=== PATIENT | female | born 1950 | race Caucasian/White ===

== ENCOUNTER → 2016-08-04 | Outpatient (CLI) | payer BC ==
[~2016-08-04] MED LIST: BACL10TA PO; CEPH500C PO; GLC/500 PO; LINA1CAP PO; LISI-725 PO; LISI-787 PO; NRN/300 PO; OXYC-57 PO; PENT100C6 PO; PHEN-775 PO; POLY335019 PO
== END | disposition home or self-care (01) ==
LOC: C.LABSPEC 17:05
PROVIDERS: ATTEND Nurse Practitioner Family
DX: R10.2 Pelvic and perineal pain (principal)

== ENCOUNTER → 2016-08-07 | Outpatient (CLI) | payer BC ==
--- NOTE | 2016-08-07 09:05 | DIAGNOSTIC IMAGING REPORT ---
ULTRASOUND OF THE PELVIS CLINICAL HISTORY: Pelvic pain. COMPARISON STUDY: CT of the pelvis dated 09/27/2009. TECHNIQUE: Real-time, grayscale, and color flow sonography of the pelvis is performed both transabdominally and endovaginally. Images are reviewed in the transverse and longitudinal planes. FINDINGS: Uterus: The uterus is surgically absent Ovaries: The ovaries were not identified on the transabdominal or endovaginal images. Pelvis: There is no free fluid in the cul-de-sac. No concerning adnexal lesion is seen. IMPRESSION: 1. No sonographic abnormality is identified in the pelvis. 2. The uterus is surgically absent. The ovaries were not visualized and may also be surgically absent. Correlation with the surgical history will be required. Electronically signed by: Edinson Orellana M.D. 08/07/2016 9:03 AM Dictated Date/Time: 08/07/2016 9:01 AM
--- NOTE | 2016-08-07 09:39 | DIAGNOSTIC IMAGING REPORT ---
KUB CLINICAL HISTORY: Pelvic pain. FINDINGS: 2 AP supine abdominal radiographs are correlated with abdominal CT dated 09/27/2009. There is a nonobstructed abdominal bowel gas pattern noting moderate to severe colonic fecal retention. Numerous pelvic phleboliths are similar to previous. The skeletal structures are osteopenic. The lumbar spine and bony pelvis appear intact. The lung bases are clear as imaged. IMPRESSION: Moderate to severe constipation. Electronically signed by: Edinson Orellana M.D. 08/07/2016 9:37 AM Dictated Date/Time: 08/07/2016 9:35 AM
== END | disposition home or self-care (01) ==
LOC: C.ULTR 08:13
PROVIDERS: ATTEND Nurse Practitioner Family
DX: R10.2 Pelvic and perineal pain (principal)

== ENCOUNTER 2016-08-25 06:17 | Emergency (ER) | payer BC ==
[~2016-08-25] VITALS: Ht 157.5 cm; Wt 85.1 kg
[~2016-08-25 06:17] MED LIST changes: -BACL10TA PO; -CEPH500C PO; -GLC/500 PO; -LINA1CAP PO; -LISI-725 PO; -NRN/300 PO; -OXYC-57 PO; -PENT100C6 PO; -PHEN-775 PO; -POLY335019 PO
[2016-08-25 06:20] VITALS: TEMP 36.5; Ht 157.5 cm; Wt 85.1 kg
[2016-08-25] MEDS ORDERED: SODIUM CHLORIDE 0.9% 1000ML 1,000 ML IV STA (06:45)
[2016-08-25] MEDS ORDERED: ONDANSETRON INJ 2 MG/ML 2 ML VIAL IV STA (06:45)
[2016-08-25] MEDS ORDERED: KETOROLAC TROMETHAMINE 30 MG/ML VIAL IV STA (06:45)
[2016-08-25] MEDS ORDERED: LINA1CAP PO (06:54)
[2016-08-25] MEDS ORDERED: POLY335019 PO (06:54)
[2016-08-25] MEDS ORDERED: GLC/500 PO (06:54)
[2016-08-25] MEDS ORDERED: OPTIRAY 320 IV PRN (07:00)
--- NOTE | 2016-08-25 07:04 | DIAGNOSTIC IMAGING REPORT ---
CHEST ONE VIEW PORTABLE CLINICAL HISTORY: Pain, radiating to the abdomen. COMPARISON STUDY: No previous studies for comparison. FINDINGS: The cardiac and mediastinal contours are normal. There is no evidence of focal pulmonary consolidation. There is no evidence of failure. No pleural effusions are visualized.[ Slight prominence the basal markings are felt to be secondary to a suboptimal inspiration. No free air is visualized. IMPRESSION: No active disease in the chest. Electronically signed by: Carlos Ling M.D. 08/25/2016 7:03 AM Dictated Date/Time: 08/25/2016 7:02 AM
[2016-08-25 07:16] LABS: URINE APPEARANCE CLEAR (CLEAR); URINE BILIRUBIN NEG (NEG); URINE COLOR YELLOW; URINE EPITHELIAL CELL AUTO >30 /lpf (0-5); URINE NITRITE NEG (NEG); URINE SPECIFIC GRAVITY 1.018 (1.000-1.030); UROBILINOGEN NEG (NEG)
[2016-08-25 07:17] LABS: MANUAL MICROSCOPIC REQUIRED? NO; REVIEW REQ? NO; ZZUR CULT IF INDIC CLEAN CATCH NO
--- NOTE | 2016-08-25 07:20 | EMERGENCY ROOM VISIT NOTE ---
History Report prepared by Scribe: Lorenzo Greco Under the Supervision of: Dr. Serjio Chu D.O. First contact with patient: 06:44 Chief Complaint: ABDOMINAL PAIN Stated Complaint: PAIN IN STOMACH Nursing Triage Summary: Pt reports pain in the left lower quadrant. Pt gave urine sample and states, "the pain is subsiding. Maybe the pressure from having to go is gone and made it feel better." Pt reports pain has been going on for about a year. Pt had recent back surgery from herniated discs. Pt did see PCP and was diagnosed with severe constipation. Pt is taking medications for it. Pt reports a mesh for her bladder placed 10 years prior. History of Present Illness The patient is a 65 year old female who presents to the Emergency Room with complaints of intermittent left lower quadrant abdominal pain starting this morning. She has been having similar abdominal for the past year. The patient received an abdominal/pelvic x-ray on August 12. which showed severe constipation. She denies fevers, chills, chest pain, shortness of breath, nausea , vomiting, diarrhea, urinary symptoms, or any other complaints. Source of History: patient Onset: this morning Position: abdomen (LLQ) Timing: intermittent Associated Symptoms: No SOB, No chest pain, No chills, No diarrhea, No fevers, No nausea, No urinary symptoms, No vomiting Review of Systems See HPI for pertinent positives & negatives. A total of 10 systems reviewed and were otherwise negative. Past Medical & Surgical Medical Problems: (1) H/O urinary tract problem (2) Hypertension (3) Prediabetes Family History Cancer Heart disease Hypertension Lung disease Social History Smoking Status: Never Smoker Marital Status: Housing Status: lives with significant other Occupation Status: retired Current/Historical Medications Scheduled Linaclotide (Linzess), 145 MCG PO DAILY Lisinopril/Hctz (Zestoretic 20MG/12.5MG), 1 TAB PO DAILY Metformin Hcl (Glucophage), 500 MG PO BID Polyethylene Glycol 3350 (Miralax), 17 GM PO DAILY Allergies Coded Allergies: Aspirin (Verified Allergy, Mild, HIVES, 08/25/16) Physical Exam Vital Signs Date Time Temp Pulse Resp B/P Pulse Ox O2 Delivery O2 Flow Rate FiO2 08/25/16 09:43 87 18 124/65 100 Room Air 08/25/16 08:20 82 18 109/73 98 Room Air 08/25/16 06:20 36.5 95 20 148/94 98 Room Air Physical Exam CONSTITUTIONAL/VITAL SIGNS: Reviewed / noted above. GENERAL: Non-toxic in appearance. INTEGUMENTARY: Warm, dry, and [place]. HEAD: Normocephalic. EYES: without scleral icterus or trauma. ENT/OROPHARYNX: clear and moist. LYMPHADENOPATHY/NECK: Is supple without lymphadenopathy or meningismus. RESPIRATORY: Lungs clear and equal. CARDIOVASCULAR: Regular rate and rhythm. GI/ABDOMEN: Soft and nontender. No organomegaly or pulsatile mass. No rebound or guarding. Normal bowel sounds. EXTREMITIES: Warm and well perfused. BACK: No CVA tenderness. NEUROLOGICAL: Intact without focal deficits. PSYCHIATRIC: normal affect. MUSCULOSKELETAL: Normally developed with good muscle tone. Medical Decision & Procedures ER Provider Diagnostic Interpretation: X ray results and stated below per my interpretation and radiology interpretation. CHEST ONE VIEW PORTABLE CLINICAL HISTORY: Pain, radiating to the abdomen. COMPARISON STUDY: No previous studies for comparison. FINDINGS: The cardiac and mediastinal contours are normal. There is no evidence of focal pulmonary consolidation. There is no evidence of failure. No pleural effusions are visualized.[ Slight prominence the basal markings are felt to be secondary to a suboptimal inspiration. No free air is visualized. IMPRESSION: No active disease in the chest. Electronically signed by: Carlos Ling M.D. 08/25/2016 7:03 AM Dictated Date/Time: 08/25/2016 7:[address] results as stated below per my review and radiologist interpretation: ABDOMEN AND PELVIS CT WITH IV AND ORAL CONTRAST CT DOSE: 564.01 mGy.cm HISTORY: Pain. Nausea. ABDOMINAL PAIN/GI TECHNIQUE: Multiaxial CT images of the abdomen and pelvis were performed following the use of intravenous and oral contrast. COMPARISON STUDY: 09/27/2009 FINDINGS: Lung bases are clear. Liver spleen and pancreas are uniform in appearance. There is a small hiatal hernia. Gallbladder is negative for distention. Kidneys negative for hydronephrosis. Possible annular lesion within the colon at the level of the hepatic flexure. This may also be secondary to technical lack of distention. The appendix is not well seen although a significant right lower quadrant or periappendiceal inflammatory process is not appreciated. Bowel pattern is nonobstructive. IMPRESSION: 1. Technical lack of distention versus annular lesion of the hepatic flexure of the colon. 2. Colonoscopy is suggested as follow-up. 3. The study is otherwise negative. Electronically signed by: Edgar Davies M.D. 08/25/2016 9:51 AM Dictated Date/Time: 08/25/2016 9:40 AM Laboratory Results 08/25/16 07:05 Red Blood Count 4.54, Mean Corpuscular Volume 90.5, Mean Corpuscular Hemoglobin 30.4, Mean Corpuscular Hemoglobin Concent 33.6, Mean Platelet Volume 10.1, Neutrophils (%) (Auto) 60.3, Lymphocytes (%) (Auto) 21.1, Monocytes (%) (Auto) 10.0, Eosinophils (%) (Auto) 7.8, Basophils (%) (Auto) 0.2, Neutrophils # (Auto ) 4.87, Lymphocytes # (Auto) 1.71, Monocytes # (Auto) 0.81, Eosinophils # (Auto ) 0.63, Basophils # (Auto) 0.02 08/25/16 07:05 Test 08/25/16 06:38 08/25/16 07:05 Urine Color YELLOW Urine Appearance CLEAR (CLEAR) Urine pH 5.0 (4.5-7.5) Urine Specific [place] 1.018 (1.000-1.030) Urine Protein NEG (NEG) Urine Glucose (UA) NEG (NEG) Urine Ketones NEG (NEG) Urine Occult Blood 1+ (NEG) Urine Nitrite NEG (NEG) Urine Bilirubin NEG (NEG) Urine Urobilinogen NEG (NEG) Urine Leukocyte Esterase SMALL (NEG) Urine WBC (Auto) 5-10 /hpf (0-5) Urine RBC (Auto) 5-10 /hpf (0-4) Urine Hyaline Casts (Auto) 1-5 /lpf (0-5) Urine Epithelial Cells (Auto) >30 /lpf (0-5) Urine Bacteria (Auto) NEG (NEG) White Blood Count 8.09 K/uL (4.8-10.8) Red Blood Count 4.54 M/uL (4.2-5.4) Hemoglobin 13.8 g/dL (12.0-16.0) Hematocrit 41.1 % (37-47) Mean Corpuscular Volume 90.5 fL (80-100) Mean Corpuscular Hemoglobin 30.4 pg (25-34) Mean Corpuscular Hemoglobin Concent 33.6 g/dl (32-36) Platelet Count 357 K/uL (130-400) Mean Platelet Volume 10.1 fL (7.4-10.4) Neutrophils (%) (Auto) 60.3 % Lymphocytes (%) (Auto) 21.1 % Monocytes (%) (Auto) 10.0 % Eosinophils (%) (Auto) 7.8 % Basophils (%) (Auto) 0.2 % Neutrophils # (Auto) 4.87 K/uL (1.4-6.5) Lymphocytes # (Auto) 1.71 K/uL (1.2-3.4) Monocytes # (Auto) 0.81 K/uL (0.11-0.59) Eosinophils # (Auto) 0.63 K/uL (0-0.5) Basophils # (Auto) 0.02 K/uL (0-0.2) RDW Standard Deviation 44.1 fL (36.4-46.3) RDW Coefficient of Variation 13.3 % (11.5-14.5) Immature Granulocyte % (Auto) 0.6 % Immature Granulocyte # (Auto) 0.05 K/uL (0.00-0.02) Prothrombin Time 9.6 SECONDS (9.0-12.0) Prothromb Time International Ratio 0.9 (0.9-1.1) Activated Partial Thromboplast Time 26.1 SECONDS (21.0-31.0) Partial Thromboplastin Ratio 1.0 Anion Gap 7.0 mmol/L (3-11) Est Creatinine Clear Calc Drug Dose 69.1 ml/min Estimated GFR () 87.7 Estimated GFR (Non- 75.7 BUN/Creatinine Ratio 21.0 (10-20) Calcium Level 9.1 mg/dl (8.5-10.1) Total Bilirubin 0.2 mg/dl (0.2-1) Direct Bilirubin < 0.1 mg/dl (0-0.2) Aspartate Amino Transf (AST/SGOT) 13 U/L (15-37) Alanine Aminotransferase (ALT/SGPT) 25 U/L (12-78) Alkaline Phosphatase 71 U/L (45-117) Total Protein 8.0 gm/dl (6.4-8.2) Albumin 3.7 gm/dl (3.4-5.0) Lipase 203 U/L (73-393) Laboratory results as stated above per my review. Medications Administered Medications (Trade) Dose Ordered Sig/Vi Route Start Time Stop Time Status Last Admin Dose Admin Sodium Chloride (Nss 1000ml) 1,000 ml @ 250 mls/hr Q4H STAT IV 08/25/16 06:45 08/25/16 10:44 08/25/16 07:15 250 MLS/HR Ondansetron HCl (Zofran Inj) 4 mg NOW STAT IV 08/25/16 06:45 08/25/16 06:46 DC 08/25/16 07:15 4 MG Ketorolac Tromethamine (Toradol Inj) 30 mg NOW STAT IV 08/25/16 06:45 08/25/16 06:46 DC 08/25/16 07:15 30 MG ED Course 0644: Previous medical records were reviewed. The patient was evaluated in room B03B. A complete history and physical examination was performed. 0645: Toradol Inj 30 mg IV, Zofran Inj 4 mg IV, Sodium Chloride 1000 ml @ 250 mls/hr IV 1022: On reevaluation, the patient is resting comfortably. I discussed the results and findings with the patient. She verbalized agreement of the treatment plan. The patient was discharged home. Medical Decision Differential considered: pancreatitis, hepatitis, acute cholecystitis, AAA, UTI , pyelonephritis, kidney stones, appendicitis, diverticulitis, shingles, bowel obstruction, mesenteric ischemia, intussusception,hernia, testicular torsion, ovarian torsion, ruptured ovarian cyst,ectopic , . This is a 65-year-old female who presents to the ED with a chief complaint of left lower quadrant abdominal pain that started this morning. She states that she has had the same pain off and on for the past year. She denies any fevers. She denies any vomiting, blood in her stools or urinary symptoms. She has seen a urologist for this and had some x-rays and tests done which did not reveal a cause for her symptoms. Her last normal bowel movement was yesterday. Her vital signs are normal. Her physical exam did not reveal any abdominal tenderness. She has no CVA tenderness. Her exam was unremarkable. Chest x- ray did not show acute disease. CBC is normal. Complete metabolic panel was normal. Lipase is normal. CT scan of the abdomen and pelvis did not show any acute abnormalities. A colonoscopy was recommended follow-up. The patient was treated with IV fluids, IV Toradol and IV Zofran. She is felt to be stable for discharge. Impression Primary Impression: LLQ abdominal pain Scribe Attestation The scribe's documentation has been prepared under my direction and personally reviewed by me in its entirety. I confirm that the note above accurately reflects all work, treatment, procedures, and medical decision making performed by me. Departure Information Dispostion Home / Self-Care Referrals Ivan Lunsford Jr,D.O. (PCP) Forms HOME CARE DOCUMENTATION FORM, IMPORTANT VISIT INFORMATION Patient Instructions My [facility] Additional Instructions Your blood work and CAT scan did not show any acute abnormality. Recommend colonoscopy. Talk to your doctor about scheduling this. Return for any concerns or worsening.
[2016-08-25 07:26] LABS: BASO % 0.2 %; BASO ABS # 0.02 K/uL (0-0.2); COMPLETE YES; EOS % 7.8 %; HEMATOCRIT 41.1 % (37-47); IG% 0.6 %; LYMPH % 21.1 %; LYMPH ABS # 1.71 K/uL (1.2-3.4); MEAN CELL VOLUME 90.5 fL (80-100); MEAN CORPUSCULAR HEMOGLOBIN 30.4 pg (25-34); MEAN CORPUSCULAR HGB CONC 33.6 g/dl (32-36); MEAN PLATELET VOLUME 10.1 fL (7.4-10.4); NEUT % 60.3 %; PLATELET COUNT 357 K/uL (130-400); RED BLOOD COUNT 4.54 M/uL (4.2-5.4); WHITE BLOOD COUNT 8.09 K/uL (4.8-10.8)
[2016-08-25 07:38] LABS: INR 0.9 (0.9-1.1); PROTHROMBIN TIME (PATIENT) 9.6 SECONDS (9.0-12.0)
[2016-08-25 07:46] LABS: ALT/SGPT 25 U/L (12-78); AST/SGOT 13 U/L (15-37); BLOOD UREA NITROGEN 17 mg/dl (7-18); CALCIUM 9.1 mg/dl (8.5-10.1); CARBON DIOXIDE 28 mmol/L (21-32); CHLORIDE 102 mmol/L (98-107); CREATININE 0.81 mg/dl (0.60-1.20); GLUCOSE 88 mg/dl (70-99); POTASSIUM 4.2 mmol/L (3.5-5.1); SODIUM 137 mmol/L (136-145)
[2016-08-25 07:49] LABS: ALKALINE PHOSPHATASE 71 U/L (45-117)
--- NOTE | 2016-08-25 09:53 | DIAGNOSTIC IMAGING REPORT ---
ABDOMEN AND PELVIS CT WITH IV AND ORAL CONTRAST CT DOSE: 564.01 mGy.cm HISTORY: Pain. Nausea. ABDOMINAL PAIN/GI TECHNIQUE: Multiaxial CT images of the abdomen and pelvis were performed following the use of intravenous and oral contrast. COMPARISON STUDY: 09/27/2009 FINDINGS: Lung bases are clear. Liver spleen and pancreas are uniform in appearance. There is a small hiatal hernia. Gallbladder is negative for distention. Kidneys negative for hydronephrosis. Possible annular lesion within the colon at the level of the hepatic flexure. This may also be secondary to technical lack of distention. The appendix is not well seen although a significant right lower quadrant or periappendiceal inflammatory process is not appreciated. Bowel pattern is nonobstructive. IMPRESSION: 1. Technical lack of distention versus annular lesion of the hepatic flexure of the colon. 2. Colonoscopy is suggested as follow-up. 3. The study is otherwise negative. Electronically signed by: Edgar Davies M.D. 08/25/2016 9:51 AM Dictated Date/Time: 08/25/2016 9:40 AM
[2016-08-25 10:30] VITALS: BP 124/65; PULSE 84; O2SAT 98
[2016-10-15] MEDS ORDERED: NRN/300 PO (09:10)
[2017-02-19] MEDS ORDERED: PENT100C6 PO (13:09)
[2017-02-27] MEDS ORDERED: BACL10TA PO (13:39)
[2017-02-27] MEDS ORDERED: LISI-725 PO (13:39)
[2017-03-09] MEDS ORDERED: OXYC-57 PO (08:21)
[2017-03-09] MEDS ORDERED: PHEN-775 PO (08:21)
[2017-03-09] MEDS ORDERED: CEPH500C PO (08:21)
== END 2016-08-25 10:33 | disposition home or self-care (01) ==
LOC: C.EDB 06:18
DX: R10.32 Left lower quadrant pain (principal); I10 Essential (primary) hypertension; R73.03 Prediabetes; Z79.4 Long term (current) use of insulin; Z79.899 Other long term (current) drug therapy; Z88.6 Allergy status to analgesic agent; Z80.9 Family history of malignant neoplasm, unspecified; Z82.49 Family history of ischemic heart disease and other diseases of the circulatory system

== ENCOUNTER → 2016-11-25 | Outpatient (CLI) | payer BC ==
[~2016-11-25] MED LIST changes: +GLC/500 PO; +NRN/300 PO
--- NOTE | 2016-11-25 08:42 | DIAGNOSTIC IMAGING REPORT ---
ABDOMEN FOR HERNIA CLINICAL HISTORY: L INGUINAL HERNIA, LAB FIRST pain TECHNIQUE: Ultrasound COMPARISON STUDY: None FINDINGS: Normal ultrasonic evaluation of the inguinal region. No evidence for hernia. Imaging was performed pre and post Valsalva IMPRESSION: Normal study. No evidence for hernia. The above report was generated using voice recognition software. It may contain grammatical, syntax or spelling errors. Electronically signed by: Edgar Davies M.D. 11/25/2016 8:41 AM Dictated Date/Time: 11/25/2016 8:40 AM
[2016-11-25 09:36] LABS: BASO % 0.2 %; BASO ABS # 0.02 K/uL (0-0.2); COMPLETE YES; EOS % 5.1 %; HEMATOCRIT 40.6 % (37-47); IG% 0.4 %; LYMPH % 17.5 %; LYMPH ABS # 1.42 K/uL (1.2-3.4); MEAN CELL VOLUME 89.6 fL (80-100); MEAN CORPUSCULAR HEMOGLOBIN 29.4 pg (25-34); MEAN CORPUSCULAR HGB CONC 32.8 g/dl (32-36); MEAN PLATELET VOLUME 10.3 fL (7.4-10.4); MONO % 11.5 %; NEUT % 65.3 %; PLATELET COUNT 369 K/uL (130-400); RED BLOOD COUNT 4.53 M/uL (4.2-5.4)
[2016-11-25 09:54] LABS: ESTIMATED AVERAGE GLUCOSE 108 mg/dl; HA1C FLAG Normal (Normal)
[2016-11-25 09:55] LABS: ALT/SGPT 27 U/L (12-78); AST/SGOT 23 U/L (15-37); BLOOD UREA NITROGEN 19 mg/dl (7-18); BUN/CREATININE RATIO 20.2 (10-20); CARBON DIOXIDE 29 mmol/L (21-32); CHLORIDE 103 mmol/L (98-107); CHOLESTEROL 189 mg/dl (0-200); CREATININE 0.93 mg/dl (0.60-1.20); GLUCOSE 94 mg/dl (70-99); SODIUM 137 mmol/L (136-145); TRIGLYCERIDES 216 mg/dl (0-150); VERY LOW DENSITY LIPOPROT CALC 43 mg/dl
[2016-11-25 09:58] LABS: CHOLESTEROL/HDL RATIO 5.4; HDL CHOLESTEROL 35 mg/dl; LDL CHOLESTEROL CALCULATED 111 mg/dl
--- NOTE | 2016-12-02 07:50 | CODING QUERY MEDICAL NECESSITY ---
SUPPORTING DIAGNOSIS NEEDED A supporting diagnosis is required for the test/procedure performed on this patient in order for us to be reimbursed by the patient's insurance. Please provide a supporting diagnosis for the following test/procedure listed below next to the test name along with your signature. *If there is no additional diagnosis for this patient that would support the following test/procedure please document that below next to the test/procedure. Test(s)/Procedure(s) that require a supporting diagnosis: * HEMOGLOBIN A1C DIAGNOSIS: Provider Signature: Date: Thank you Cristiane Monterroso [employer] Once completed, please kindly fax back to [phone] For questions please call [phone]
== END | disposition home or self-care (01) ==
LOC: C.ULTR 07:44
DX: R59.1 Generalized enlarged lymph nodes (principal); E78.5 Hyperlipidemia, unspecified; E88.81 Metabolic syndrome and other insulin resistance; K59.00 Constipation, unspecified; K40.90 Unilateral inguinal hernia, without obstruction or gangrene, not specified as recurrent; E11.9 Type 2 diabetes mellitus without complications

== ENCOUNTER → 2017-01-06 | Outpatient (CLI) | payer BC | END | disposition home or self-care (01) | LOC: C.LABSPEC 17:03 | PROVIDERS: ATTEND Nurse Practitioner Family | DX: R35.0 Frequency of micturition (principal); R39.15 Urgency of urination; R10.2 Pelvic and perineal pain ==

== ENCOUNTER 2017-03-09 07:52 | Day surgery (SDC) | payer BC ==
[2017-02-27 13:42] VITALS: BMI 35.0
--- NOTE | 2017-02-27 14:10 | PAT Medication Instructions ---
Service Date Feb 27, 2017. Current Home Medication List Baclofen (Lioresal), 10 MG PO TID PRN for PRN Gabapentin (Neurontin), 1 CAP PO TID Lisinopril (Zestril), 20 MG PO QAM Pentosan Polysulfate Sodium (Elmiron), 100 MG PO TID Medication Instructions For Your Scheduled Surgery - Ask your surgeon for any instructions: Pentosan Polysulfate Sodium ([place]miron), 100 MG PO TID - Hold the following medications the morning of surgery: Lisinopril (Zestril), 20 MG PO QAM Baclofen (Lioresal), 10 MG PO TID PRN for PRN - Take the following medications the morning of surgery with a sip of water: Gabapentin (Neurontin), 1 CAP PO TID - Take the following medications as scheduled the night before surgery: Gabapentin (Neurontin), 1 CAP PO TID Baclofen (Lioresal), 10 MG PO TID PRN for PRN (if needed) If you have any questions please call us at [phone] or [phone] or [phone]
[2017-02-27 14:43] LABS: BASO % 0.6 %; BASO ABS # 0.06 K/uL (0-0.2); COMPLETE YES; EOS % 5.9 %; HEMATOCRIT 40.6 % (37-47); IG% 0.5 %; LYMPH % 24.9 %; LYMPH ABS # 2.49 K/uL (1.2-3.4); MEAN CELL VOLUME 92.5 fL (80-100); MEAN CORPUSCULAR HEMOGLOBIN 30.8 pg (25-34); MEAN CORPUSCULAR HGB CONC 33.3 g/dl (32-36); MEAN PLATELET VOLUME 9.8 fL (7.4-10.4); MONO % 9.7 %; NEUT % 58.4 %; PLATELET COUNT 383 K/uL (130-400); RED BLOOD COUNT 4.39 M/uL (4.2-5.4); WHITE BLOOD COUNT 9.98 K/uL (4.8-10.8)
[2017-02-27 14:46] LABS: URINE APPEARANCE CLEAR (CLEAR); URINE BILIRUBIN NEG (NEG); URINE COLOR YELLOW; URINE NITRITE NEG (NEG); URINE PH 6.5 (4.5-7.5); URINE SPECIFIC GRAVITY 1.009 (1.000-1.030); UROBILINOGEN NEG (NEG)
[2017-02-27 14:54] LABS: MANUAL MICROSCOPIC REQUIRED? NO; REVIEW REQ? NO
[2017-02-27 14:56] LABS: BUN/CREATININE RATIO 19.5 (10-20); CREATININE 1.04 mg/dl (0.60-1.20); POTASSIUM 4.5 mmol/L (3.5-5.1)
[~2017-03-09] VITALS: Ht 157.5 cm; Wt 86.6 kg
[~2017-03-09 07:52] MED LIST changes: +BACL10TA PO; +CEFAZOLIN 2000MG IV PUSH 10 ML IV SCH; +CIPROFLOXACIN / D5W 400 MG IV SCH; -GLC/500 PO; +LACTATED RINGER'S 1000ML 1,000 ML IV SCH; +LISI-725 PO; -LISI-787 PO; +PENT100C6 PO
[2017-03-09 08:15] VITALS: BP 163/75; PULSE 71; O2SAT 95; Ht 157.5 cm; Wt 86.6 kg
--- NOTE | 2017-03-09 08:16 | History & Physical Bridge Note ---
H&P Re-Evaluation Bridge Note: I have examined the patient, reviewed the History & Physical and in the interval since the performance of the History & Physical I have noted the following changes of clinical significance: No changes noted
--- NOTE | 2017-03-09 08:20 | [facility] Operative Report ---
Operative Report Operative Date Mar 09, 2017. 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 Suspicious lesions biopsied. Specimens Biopsy lesions posterior bladder. Drains None Anesthesia MAC Complication(s) None Disposition Recovery Room / PACU Indications IC with suspicious lesions on posterior bladder. Long conversation of options. Patient agreeable and consented. Description of Procedure Patient was consented and brought back to the operating room. Patient was placed under anesthesia in the supine position. Patient was prepped and draped in the regular sterile fashion. A time out was completed. A 30degree Cystoscope was placed into the bladder and the entire bladder was examined. The bladder underwent hydrodistension with fluid by gravity. Short duration and low pressure hydrodistension completed. The bladder was then emptied and examined a second time. Lesions of the posterior wall were once again found. Biopsy with cold cup was taken from the areas and sent for analysis. The lesions were fulgurated with a bugby cautery. With the lesions fulgurated the bladder was once again examined. The bladder was emptied. The scope was removed. The patient was cleaned, aroused from anesthesia, and transferred to the pacu in stable condition having tolerated the procedure well with no complications. I was present and participated in all aspects of the procedure. The patient will be monitored in the PACU until transferred. I attest to the content of the Intraoperative Record and any orders documented therein. Any exceptions are noted below.
[2017-03-09] MEDS ORDERED: PHEN-775 PO (08:21)
[2017-03-09] MEDS ORDERED: OXYC-57 PO (08:21)
[2017-03-09] MEDS ORDERED: CEPH500C PO (08:21)
--- NOTE | 2017-03-09 08:23 | Discharge Instructions ---
Discharge Instructions Date of Service Mar 09, 2017. Admission Reason for Admission: Hematuria Discharge Discharge Diagnosis / Problem: Suspicious bladder lesions Discharge Goals Goal(s): Decrease discomfort, Improve function Activity Recommendations Activity Limitations: resume your previous activity Lifting Limitations: none Exercise/Sports Limitations: as tolerated May Resume Sexual Activity: after follow-up appointment Shower/Bathe: no limitations . Instructions / Follow-Up Instructions / Follow-Up May have blood in urine or discomfort or urgency when urinating. Call if unable to void. Patient may have significant flare of IC symptoms after hydrodistension and fulguration. Call if any fevers or chills. Utilize PRN medications and oxybutnin for spasms. Current Hospital Diet Patient's current hospital diet: Regular Discharge Diet Recommended Diet: Regular Diet Procedures Procedures Performed: Cystoscopy, Bladder biopsy, Fulguration, Hydrodistension Pending Studies Studies pending at discharge: no Medical Emergencies . Who to Call and When: Medical Emergencies: If at any time you feel your situation is an emergency, please call 911 immediately. . Non-Emergent Contact Non-Emergency issues call your: Primary Care Provider, Urologist Call Non-Emergent contact if: you have a fever, temperature is above 101, temperature is above 101.5, your pain is not controlled, your pain is worsening , your pain is unusual for you . . "Provider Documentation" section prepared by Meet Ayon,. . VTE Core Measure Inpt VTE Proph given/why not?: Hoang Britton, SCD's
[2017-03-09] MEDS ORDERED: OXYCODONE/ACETAMINOPHEN 7.5-325 TAB PO PRN (08:30)
[2017-03-09] MEDS ORDERED: ONDANSETRON INJ 2 MG/ML 2 ML VIAL ONE (09:51)
[2017-03-09] MEDS ORDERED: MIDAZOLAM HCL 1 MG/ML 2ML VIAL ONE (09:51)
[2017-03-09] MEDS ORDERED: PROPOFOL IV EMULSION 10 MG/ML 20 ML VIAL IV ONE (09:51)
[2017-03-09] MEDS ORDERED: LIDOCAINE HCL 2% 2 ML VIAL (20MG/ML) ONE (09:51)
[2017-03-09] MEDS ORDERED: FENTANYL CITRATE INJ 50 MCG/1 ML 2 ML VIAL ONE (09:51)
[2017-03-09] MEDS ORDERED: LABETALOL HCL IV 5 MG/ML 20ML IV PRN (11:00)
[2017-03-09] MEDS ORDERED: ATROPINE SULFATE 0.1 MG/ML 5ML SYR IV PRN (11:00)
[2017-03-09] MEDS ORDERED: FENTANYL CITRATE INJ 50 MCG/1 ML 2 ML VIAL IV PRN (11:00)
[2017-03-09] MEDS ORDERED: NALOXONE HCL 0.4 MG/1 ML VIAL/CARP IV PRN (11:00)
[2017-03-09] MEDS ORDERED: EpHEDrine SULFATE INJ 50 MG/ML AMP IV PRN (11:00)
[2017-03-09] MEDS ORDERED: PROMETHAZINE HCL INJ 12.5 MG in SODIUM CHLORIDE 0.9% 50ML 50 ML IV PRN (11:00)
[2017-03-09] MEDS ORDERED: FLUMAZENIL 0.1 MG/1 ML 10 ML VIAL IV PRN (11:00)
[2017-03-09] MEDS ORDERED: ONDANSETRON INJ 2 MG/ML 2 ML VIAL IV PRN (11:00)
--- NOTE | 2017-03-09 11:23 | Anesthesiology Progress Note ---
Anesthesia Post Op Note Date & Time Mar 09, 2017 at 11:23 Vital Signs Pain Intensity: 0 Vital Signs Past 12 Hours Date Time Temp Pulse Resp B/P (MAP) Pulse Ox O2 Delivery O2 Flow Rate FiO2 03/09/17 11:15 77 16 146/81 97 Room Air 03/09/17 11:05 79 15 152/83 100 Oxymask 03/09/17 10:55 86 17 134/75 97 Oxymask 03/09/17 10:47 36.8 67 16 114/65 96 Oxymask 03/09/17 08:15 71 18 163/75 (104) 95 Room Air Notes Mental Status: alert / awake / arousable, participated in evaluation Pt Amnestic to Procedure: Yes Nausea / Vomiting: adequately controlled Pain: adequately controlled Airway Patency, RR, SpO2: stable & adequate BP & HR: stable & adequate Hydration State: stable & adequate Anesthetic Complications: no major complications apparent
[2017-03-09 11:35] VITALS: BP 148/79; PULSE 76; TEMP 36.4; O2SAT 95
[2017-03-09 12:05] VITALS: BP 151/85; PULSE 70; O2SAT 96
[2017-03-09 12:35] VITALS: BP 140/72; PULSE 75; O2SAT 98
== END 2017-03-09 12:45 | disposition home or self-care (01) ==
LOC: C.ACU 07:52
PROVIDERS: ATTEND Urology
DX: R31.29 Other microscopic hematuria (principal); N30.10 Interstitial cystitis (chronic) without hematuria; R30.0 Dysuria; E11.9 Type 2 diabetes mellitus without complications; I10 Essential (primary) hypertension; E66.9 Obesity, unspecified; Z68.35 Body mass index [BMI] 35.0-35.9, adult; Z88.1 Allergy status to other antibiotic agents; Z79.899 Other long term (current) drug therapy; Z90.710 Acquired absence of both cervix and uterus; Z90.89 Acquired absence of other organs; Z82.49 Family history of ischemic heart disease and other diseases of the circulatory system; Z80.9 Family history of malignant neoplasm, unspecified

== ENCOUNTER → 2017-05-16 | Outpatient (CLI) | payer BC ==
[~2017-05-16] MED LIST changes: -BACL10TA PO; -CEFAZOLIN 2000MG IV PUSH 10 ML IV SCH; -CIPROFLOXACIN / D5W 400 MG IV SCH; -LACTATED RINGER'S 1000ML 1,000 ML IV SCH; -NRN/300 PO; -PENT100C6 PO
== END | disposition home or self-care (01) ==
LOC: C.LAB 08:54
PROVIDERS: ATTEND Urology
DX: R35.0 Frequency of micturition (principal); R39.15 Urgency of urination

== ENCOUNTER → 2017-06-16 | Outpatient (CLI) | payer BC | END | disposition home or self-care (01) | LOC: C.LABSPEC 17:12 | PROVIDERS: ATTEND Urology | DX: R39.15 Urgency of urination (principal) ==

== ENCOUNTER → 2017-06-30 | Outpatient (CLI) | payer BC | END | disposition home or self-care (01) | LOC: C.LABSPEC 16:33 | PROVIDERS: ATTEND Urology | DX: R35.0 Frequency of micturition (principal); R39.15 Urgency of urination ==

== ENCOUNTER → 2017-12-21 | Outpatient (CLI) | payer BC ==
--- NOTE | 2017-12-21 08:26 | DIAGNOSTIC IMAGING REPORT ---
CHEST PREADMISSION(PA/LAT) CLINICAL HISTORY: LYMPHADENOPATHY COMPARISON STUDY: 08/25/2016 FINDINGS: The cardiac and mediastinal contours are normal. There is no evidence of focal pulmonary consolidation. There is no evidence of failure. No pleural effusions are visualized.[ A vague right midlung zone opacity is felt to represent a vascular summation. IMPRESSION: No active disease in the chest. Electronically signed by: Carlos Ling M.D. 12/21/2017 8:25 AM Dictated Date/Time: 12/21/2017 8:24 AM
[2017-12-21 09:34] LABS: BASO % 0.4 %; BASO ABS # 0.03 K/uL (0-0.2); EOS % 13.2 %; EOS ABS # 0.94 K/uL (0-0.5); HEMATOCRIT 42.1 % (37-47); HEMOGLOBIN 14.1 g/dL (12.0-16.0); IG# 0.04 K/uL (0.00-0.02); LYMPH % 23.2 %; LYMPH ABS # 1.66 K/uL (1.2-3.4); MEAN CELL VOLUME 90.3 fL (80-100); MEAN CORPUSCULAR HEMOGLOBIN 30.3 pg (25-34); MEAN CORPUSCULAR HGB CONC 33.5 g/dl (32-36); MEAN PLATELET VOLUME 10.6 fL (7.4-10.4); MONO % 11.3 %; MONO ABS # 0.81 K/uL (0.11-0.59); NEUT % 51.3 %; NEUT ABS # 3.66 K/uL (1.4-6.5); PLATELET COUNT 324 K/uL (130-400); RED CELL DISTRIBUTION WIDTH CV 12.6 % (11.5-14.5); RED CELL DISTRIBUTION WIDTH SD 41.7 fL (36.4-46.3); WHITE BLOOD COUNT 7.14 K/uL (4.8-10.8)
[2017-12-21 09:53] LABS: HEMOGLOBIN A1C 5.6 % (4.5-5.6)
== END | disposition home or self-care (01) ==
LOC: C.RAD 07:36
DX: R59.1 Generalized enlarged lymph nodes (principal); I10 Essential (primary) hypertension; E88.81 Metabolic syndrome and other insulin resistance; R73.9 Hyperglycemia, unspecified